=== PATIENT | male | born 1975 | race Caucasian/White ===

== ENCOUNTER 2021-12-23 09:21 | Emergency (ER) | payer SELFPAY ==
--- NOTE | 2021-12-23 11:08 | RAD REPORT ---
EXAM DESCRIPTION: Clarisse Single View12/23/2021 10:48 am CLINICAL HISTORY: Cough COMPARISON: none FINDINGS: The lungs appear clear of acute infiltrate. The heart is normal size IMPRESSION: No acute abnormalities displayed
--- NOTE | 2021-12-23 11:25 | EDPHYS ---
Physician Documentation [facility] Name: Chris Damon Age: 46 yrs Sex: Male : 1975 Arrival Date: 12/23/2021 Time: 09:23 Bed 12 Private MD: ED Physician Phillip Pa HPI: 12/23 09:58 This 46 yrs old Male presents to ER via Ambulatory with complaints of Weakness, en Headache, Chest Congestion. 09:58 46-year-old male with history of hypertension, anxiety, depression presents to ED with en 1 week of chest congestion with cough and green sputum. He has associated headache with malaise and generalized weakness. No fevers or chills, nausea or vomiting. He denies wheezing, shortness of breath or dyspnea on exertion. No known sick contacts. He took an COVID test 2 days ago which was negative at home. Historical: - Allergies: 09:41 No Known Allergies; aa5 - Home Meds: 09:41 quetiapine 50 mg oral tab daily [Active]; metoprolol tartrate 50 mg Oral tab 1 tab 2 aa5 times per day [Active]; alprazolam 0.25 mg Oral tab take 1 to 2 tabs at bedtime [Active]; amlodipine 5 mg tab 1 tab once daily [Active]; buspirone 30 mg Oral tab 1 tab 2 times per day [Active]; - PMHx: 09:41 Hypertensive disorder; Anxiety; aa5 - PSHx: 09:41 None; aa5 - Immunization history:: Adult Immunizations unknown. - Social history:: Smoking status: Patient reports the use of cigarette tobacco products, smokes one pack cigarettes per day. ROS: 09:58 Constitutional: Negative for fever, chills, and weight loss, + malaise en 09:58 Constitutional: Positive for malaise, Negative for body aches, fever. 09:58 Eyes: Negative for discharge, matting. 09:58 ENT: Negative for ear pain, sinus congestion, sore throat. 09:58 Respiratory: Positive for cough, Negative for dyspnea on exertion, shortness of breath, wheezing. 09:58 Abdomen/GI: Negative for nausea, vomiting, and diarrhea. 09:58 Skin: Negative for rash. 09:58 Neuro: Positive for headache. 09:58 All other systems are negative. Exam: 09:58 Constitutional: The patient appears in no acute distress, alert, awake. en 09:58 Eyes: Pupils: equal, round, and reactive to light and accomodation, Extraocular movements: intact throughout, Conjunctiva: normal, no exudate, no injection. 09:58 ENT: External ear(s): are unremarkable, Ear canal(s): are normal, TM's: are normal, no dullness, no erythema, no fluid levels, Nose: is normal, no drainage, Mouth: Lips: normal, moist, Oral mucosa: pink and intact, moist, Posterior pharynx: is normal, no erythema, no exudate, no swelling, normal tonsil apperance, normal sized tonsils, Airway: patent. 09:58 Neck: ROM/movement: Meningeal signs: are not present. 09:58 Cardiovascular: Rate: normal, Rhythm: regular, Pulses: no pulse deficits are appreciated, Heart sounds: normal, no murmur, no rub, no gallop. 09:58 Respiratory: the patient does not display signs of respiratory distress, Respirations: normal, no use of accessory muscles, no retractions, Breath sounds: + upper airway congestion. Coarse diffuse lung sounds without wheezing, or respiratory distress. 09:58 Abdomen/GI: Inspection: abdomen appears normal, Bowel sounds: normal, in all quadrants, Palpation: abdomen is soft and non-tender, in all quadrants. 09:58 Musculoskeletal/extremity: ROM: intact in all extremities, full active range of motion. 09:58 Skin: no rash present. 09:58 Neuro: Orientation: is normal, appropriate for stated age, to person, place \\T\\ time. Mentation: is normal, appropriate for stated age. 09:58 Psych: Behavior/mood is pleasant, cooperative, Affect is calm. Vital Signs: 09:44 BP 125 / 78; Pulse 80; Resp 18 S; Temp 98.4(TE); Pulse Ox 97% on R/A; Weight 123.38 kg aa5 (R); Height 6 ft. 3 in. (190.50 cm) (R); Pain 0/10; 09:44 Body Mass Index 34.00 (123.38 kg, 190.50 cm) aa5 MDM: 09:58 Data reviewed: vital signs, nurses notes, radiologic studies, plain films. ED course: en Differential diagnosis includes URI, bronchitis, pneumonia, COVID. Will get chest x-ray and check COVID test no respiratory distress.. 10:03 Patient medically screened. en 11:21 Data reviewed: lab test result(s), COVID negative, radiologic studies, plain films, CXR en negative, and as a result, I will discharge patient. ED course: Chest x-ray negative for pneumonia, COVID-negative, but will treat patient for clinical pneumonia based on lung sounds and green sputum production as well as duration of symptoms. He does have coarse lung sounds with productive green sputum. Will DC home with doxycycline, albuterol, steroids and Tessalon Perles with close PCP follow-up. Acute ER return precautions were. 12/23 09:58 Order name: COVID-19 SARS RT PCR (Document "Date of Onset" if Symptomatic); Complete en Time: 11:21 12/23 09:58 Order name: CXR XRAY; Complete Time: 11:14 en Administered Medications: No medications were administered Disposition: :21 Chart complete. en 13:23 Co-signature as Attending Physician, Phillip Pa MD I agree with the assessment and kdr plan of care. Disposition Summary: 12/23/21 11:24 Discharge Ordered Location: Home en Problem: new en Symptoms: are unchanged en Condition: Stable en Diagnosis - Pneumonia, unspecified organism en Followup: en - With: David Barker MD - When: 2 - 3 days - Reason: Discharge Instructions: - Discharge Summary Sheet en - Community-Acquired Pneumonia, Adult en Forms: - Medication Reconciliation Form en - Thank You Letter en - Antibiotic Education en - Prescription Opioid Use en Prescriptions: - ProAir HFA 90 mcg/actuation Inhalation HFA aerosol inhaler - inhale 2 puff by INHALATION route 6 times per day; 1 Inhaler; Refills: 0, en Product Selection Permitted - Tessalon Perles 100 mg Oral Capsule - take 1 capsule by ORAL route every 8 hours As needed; 15 capsule; Refills: 0, en Product Selection Permitted - Doxycycline Hyclate 100 mg Oral Tablet - take 1 tablet by ORAL route once daily; 10 tablet; Refills: 0, Product en Selection Permitted - Prednisone 20 mg Oral Tablet - take 2 tablets by ORAL route once daily for 5 days; 10 tablet; Refills: 0, en Product Selection Permitted Signatures: Dispatcher [employer] EDMS Phillip Pa MD MD [facility] Charity Egan RN RN aa5 Daxa Rain PA PA en Corrections: (The following items were deleted from the chart) 11:26 11:21 ED course: Chest x-ray negative for pneumonia, COVID-negative. Spoke with patient en regarding bronchitis. He does have coarse lung sounds with productive green sputum. Will DC home with doxycycline, albuterol, steroids and Tessalon Perles with close PCP follow-up. Acute ER return precautions were. en
--- NOTE | 2021-12-23 11:25 | ER ---
Nurse's Notes [facility] Name: Chris Damon Age: 46 yrs Sex: Male : 1975 Arrival Date: 12/23/2021 Time: 09:23 Bed 12 Private MD: Diagnosis: Pneumonia, unspecified organism Presentation: 12/23 09:44 Chief complaint: Patient states: generalized weakness, cough, headache that began 1 aa5 week ago. Pt states "I feel like I have a cold or something". Coronavirus screen: cough unrelated to allergies, headache. Ebola Screen: No symptoms or risks identified at this time. Initial Sepsis Screen: Does the patient meet any 2 criteria? No. Patient's initial sepsis screen is negative. Does the patient have a suspected source of infection? No. Patient's initial sepsis screen is negative. Risk Assessment: Do you want to hurt yourself or someone else? Patient reports no desire to harm self or others. Onset of symptoms was December 2021. 09:44 Method Of Arrival: Ambulatory aa5 09:44 Acuity: KORI 3 aa5 Historical: - Allergies: 09:41 No Known Allergies; aa5 - Home Meds: 09:41 quetiapine 50 mg oral tab daily [Active]; metoprolol tartrate 50 mg Oral tab 1 tab 2 aa5 times per day [Active]; alprazolam 0.25 mg Oral tab take 1 to 2 tabs at bedtime [Active]; amlodipine 5 mg tab 1 tab once daily [Active]; buspirone 30 mg Oral tab 1 tab 2 times per day [Active]; - PMHx: 09:41 Hypertensive disorder; Anxiety; aa5 - PSHx: 09:41 None; aa5 - Immunization history:: Adult Immunizations unknown. - Social history:: Smoking status: Patient reports the use of cigarette tobacco products, smokes one pack cigarettes per day. Vital Signs: 09:44 BP 125 / 78; Pulse 80; Resp 18 S; Temp 98.4(TE); Pulse Ox 97% on R/A; Weight 123.38 kg aa5 (R); Height 6 ft. 3 in. (190.50 cm) (R); Pain 0/10; 09:44 Body Mass Index 34.00 (123.38 kg, 190.50 cm) aa5 ED Course: :23 Patient arrived in ED. as 09:36 Daxa Rain PA is PHCP. en 09:36 Phillip Pa MD is Attending Physician. en 09:41 Arm band placed on. aa5 09:46 Triage completed. aa5 09:53 Becky Wall, RN is Primary Nurse. iw 10:50 CXR XRAY In Process Unspecified. EDMS 11:22 David Barker MD is Referral Physician. en Administered Medications: No medications were administered Outcome: 11:24 Discharge ordered by MD. en 11:47 Patient left the ED. zm Signatures: Dispatcher [employer] EDMS Sanjuana Garcia as Becky Wall, RN RN Charity Egan RN RN aa5 Liset Garcia Daxa Rain PA PA en Corrections: (The following items were deleted from the chart) 09:46 09:44 123.38 kg Reported; Height 6 ft. 3 in. Reported; BMI: 34.0; aa5 aa
[2021-12-23 12:03] VITALS: BP 125/78; TEMP 98.4; O2SAT 97
== END 2021-12-23 11:47 | disposition home or self-care (01) ==
LOC: ER 09:21
DX: J18.9 Pneumonia, unspecified organism (principal); I10 Essential (primary) hypertension; F41.9 Anxiety disorder, unspecified; F17.210 Nicotine dependence, cigarettes, uncomplicated; Z20.822 Contact with and (suspected) exposure to COVID-19
CPT/HCPCS: 71045; 99282; U0003